=== PATIENT | male | born 1960 | race African-American/Black ===

== ENCOUNTER 2019-06-04 13:38 | Emergency (ER) | payer SELFPAY ==
[~2019-06-04] VITALS: Ht 175.3 cm; Wt 75.0 kg
[2019-06-04 13:52] VITALS: BP 126/75
--- NOTE | 2019-06-04 14:08 | NUR ---
WARM BLANKET PROVIDED, CALL LIGHT WITHIN REACH.
[2019-06-04 14:14] LABS: MEAN CORPUSCULAR HEMOGLOBIN 26.6 pg (27.5-34.5); MEAN CORPUSCULAR VOLUME 83.1 fL (81-97); MEAN PLATELET VOLUME 9.6 fL (7.4-10.4); PLATELET COUNT 195 x10^3/uL (130-400); RED BLOOD COUNT 4.97 x10^6/uL (4.38-5.82); RED CELL DISTRIBUTION WIDTH 18.2 % (9.4-14.8)
[2019-06-04 14:15] LABS: MD YES
[2019-06-04 14:25] LABS: ALBUMIN 2.1 g/dL (3.4-5.0); ANION GAP 6 mmol/L (5-15); CHLORIDE 107 mmol/L (98-107)
[2019-06-04 14:45] LABS: BAND#(MANUAL) 0.12 x10^3/uL; BANDS%(MANUAL) 1 % (0-7); LYMPH#(MANUAL) 1.09 x10^3/uL (1-3.4); LYMPHS% (MANUAL) 9 % (22-44); MONOS#(MANUAL) 1.94 x10^3/uL (0.3-2.7); MONOS% (MANUAL) 16 % (2-9); REACTIVE LYMPHS # (MANUAL) 0.12 x10^3/uL (0-0); REACTIVE LYMPHS % (MANUAL) 1 % (0-0); SEG#(MANUAL) 8.83 x10^3/uL (1.8-6.8); SEGS% (MANUAL) 73 % (42-75)
[2019-06-04 14:46] LABS: <PLATELET ESTIMATE> ADEQUATE; <PLT MORPHOLOGY> NORMAL PLT MORPH; ANISOCYTOSIS 1+; POLYCHROMASIA 1+; TARGET CELLS 1+
--- NOTE | 2019-06-04 15:20 | NUR ---
SOCKS AND CANE PROVIDED. PT DISCHARGED HOME
== END 2019-06-04 15:22 ==
LOC: ED 14:01
DX: I87.2 Venous insufficiency (chronic) (peripheral) (principal); L03.116 Cellulitis of left lower limb; E87.6 Hypokalemia; F17.200 Nicotine dependence, unspecified, uncomplicated
CPT/HCPCS: 36415; 80048; 82040; 83880; 85025; 93005; 99284

== ENCOUNTER 2019-06-18 23:47 | Emergency (ER) | payer OTHER ==
[~2019-06-18] VITALS: Ht 175.3 cm; Wt 83.4 kg
[2019-06-18 23:51] VITALS: BP 132/93
--- NOTE | 2019-06-19 | NUR ---
WAS SEEN HERE DEC DX WITH CELLULITIS. TOOK HIS ABX AND STATES STILL PRESENT. ALSO STATES HE OVERSLEPT FOR WORK TONIGHT AND WANTS A WORK NOTE. per triage note
== END 2019-06-19 01:45 | disposition home or self-care (01) ==
LOC: ED 06-19 00:41
DX: R60.0 Localized edema (principal)
CPT/HCPCS: 99284

== ENCOUNTER 2019-08-15 21:45 | Emergency (ER) | payer OTHER ==
[~2019-08-15] VITALS: Ht 175.3 cm; Wt 85.7 kg
[2019-08-15 22:40] VITALS: BP 144/78
== END 2019-08-15 22:53 | disposition home or self-care (01) ==
LOC: ED 22:00
DX: F41.1 Generalized anxiety disorder (principal); Z72.9 Problem related to lifestyle, unspecified; J44.9 Chronic obstructive pulmonary disease, unspecified; F17.200 Nicotine dependence, unspecified, uncomplicated
CPT/HCPCS: 93005; 99283

== ENCOUNTER 2019-10-13 20:10 | Emergency (ER) | payer OTHER ==
[~2019-10-13] VITALS: Ht 175.3 cm; Wt 80.0 kg
[2019-10-13 20:15] VITALS: BP 125/72
--- NOTE | 2019-10-13 20:18 | NUR ---
Patient BIB [facility] c/o anxiety and SOB post unknown stressful event. Patient states he had something stressful happen then experience these symptoms. Patient has a hx of asthma and used his inhaler once with no relief. Patient also reports a cough x1 month which is productive and yellow. Patient is in NAD. Respirations even and unlabored.
[2019-10-13] MEDS ORDERED: LORazepam 1MG TABLET ONE (20:28)
[2019-10-13] MEDS ORDERED: LORazepam 1MG TABLET PO ONE (20:30)
--- NOTE | 2019-10-13 21:13 | NUR ---
TASK RN: PT REPORTS SLIGHT IMPROVEMENT IN ANXIETY. DC EDUCATION PROVIDED. PT DEMONSTRATES UNDERSTANDING. PT AMBULATORY TO DC WITH STEADY GAIT AND DRESSED APPROPRIATELY FOR WEATHER.
== END 2019-10-13 21:16 | disposition home or self-care (01) ==
LOC: ED 20:54
DX: R06.00 Dyspnea, unspecified (principal); F41.1 Generalized anxiety disorder; R06.4 Hyperventilation; I44.4 Left anterior fascicular block; F17.200 Nicotine dependence, unspecified, uncomplicated
CPT/HCPCS: 71045; 93005; 99283

== ENCOUNTER 2020-02-29 13:03 | Emergency (ER) | payer MEDICAID, OTHER ==
[~2020-02-29] VITALS: Ht 175.3 cm; Wt 80.5 kg
[2020-02-29 13:15] VITALS: BP 137/76
[2020-02-29] MEDS ORDERED: OXYMETAZOLINE NASAL SPRAY 0.05%,30ML ONE (14:07)
[2020-02-29] MEDS ORDERED: NEOSPORIN OINT. PKT 1 PACKET ONE (14:07)
== END 2020-02-29 14:44 | disposition home or self-care (01) ==
LOC: ED 13:28
DX: R04.0 Epistaxis (principal); B85.1 Pediculosis due to Pediculus humanus corporis; J44.9 Chronic obstructive pulmonary disease, unspecified
CPT/HCPCS: 30901; 99284

== ENCOUNTER 2020-02-29 16:30 | Emergency (ER) | payer MEDICAID | END 2020-02-29 16:47 | disposition left against medical advice (07) | LOC: ED 16:40 | DX: R68.89 Other general symptoms and signs (principal); Z53.21 Procedure and treatment not carried out due to patient leaving prior to being seen by health care provider ==

== ENCOUNTER 2020-04-23 08:18 | Emergency (ER) | payer SELFPAY ==
[~2020-04-23] VITALS: Ht 175.3 cm; Wt 83.8 kg
--- NOTE | 2020-04-23 08:54 | NUR ---
SHED BOSS: PT TO ROOM FROM LOBBY
[2020-04-23] MEDS ORDERED: IBUPROFEN 800 MG TABLET ONE (09:10)
[2020-04-23] MEDS ORDERED: METHOCARBAMOL 750 MG TABLET ONE (09:11)
--- NOTE | 2020-04-23 09:45 | NUR ---
PT MEDICATED PER ERP ORDER. BP CUFF, PULSE OX IN PLACE. WARM BLANKET PROVIDED, CALL LIGHT WITHIN REACH.
[2020-04-23] MEDS ORDERED: METHOCARBAMOL 750 MG TABLET PO ONE (10:00)
[2020-04-23] MEDS ORDERED: IBUPROFEN 600 MG TABLET PO ONE (10:00)
--- NOTE | 2020-04-23 10:10 | NUR ---
REPORT TO [facility], XR RESULTS BACK, PT FOR RECHECK.
[2020-04-23 10:32] VITALS: BP 127/72
--- NOTE | 2020-04-23 10:34 | NUR ---
PT STATES PAIN BETTER, AMBULATES OUT TO DISCHARGE DESK.
== END 2020-04-23 10:36 | disposition home or self-care (01) ==
LOC: ED 10:09
DX: S16.1XXA Strain of muscle, fascia and tendon at neck level, initial encounter (principal); J44.9 Chronic obstructive pulmonary disease, unspecified; X58.XXXA Exposure to other specified factors, initial encounter; Y93.89 Activity, other specified; Y92.89 Other specified places as the place of occurrence of the external cause; Y99.8 Other external cause status
CPT/HCPCS: 72050; 99283